=== PATIENT | female | born 1980 | race Two or more races ===

== ENCOUNTER → 2020-06-06 | Outpatient (CLI) | payer OTHER ==
[~2020-06-06] VITALS: Ht 162.6 cm; Wt 63.5 kg
== END | disposition home or self-care (01) ==
LOC: NST 21:10 → LDR 21:10 → NST 22:32 → LDR 22:33 → EDSTATUS 06-14 13:47
PROVIDERS: ATTEND Obstetrics & Gynecology
DX: Z34.83 Encounter for supervision of other normal pregnancy, third trimester (principal)

== ENCOUNTER 2020-06-07 09:38 | Outpatient (CLI) | payer OTHER | END 2020-06-07 10:25 | disposition home or self-care (01) | LOC: NST 09:38 | PROVIDERS: ATTEND Obstetrics & Gynecology Maternal & Fetal Medicine | DX: Z34.83 Encounter for supervision of other normal pregnancy, third trimester (principal) ==

== ENCOUNTER 2020-07-16 15:22 | Outpatient (CLI) | payer OTHER | END 2020-07-16 16:31 | disposition home or self-care (01) | LOC: NST 15:22 | PROVIDERS: ATTEND Obstetrics & Gynecology | DX: Z34.83 Encounter for supervision of other normal pregnancy, third trimester (principal) ==

== ENCOUNTER 2020-07-20 10:49 | Outpatient (CLI) | payer OTHER | END 2020-07-20 11:49 | disposition home or self-care (01) | LOC: NST 10:49 | PROVIDERS: ATTEND Obstetrics & Gynecology | DX: Z34.83 Encounter for supervision of other normal pregnancy, third trimester (principal) ==